=== PATIENT | female | born 1940 | race Caucasian/White ===

== ENCOUNTER → 2020-06-14 | Outpatient (CLI) | payer MEDICARE ==
[~2020-06-14] MED LIST: FISH OIL 1,0001 EAC2 PO; GLIMEPIRIDE2 MG PO; LEVOTHYROXINE88 MCG PO; MELATONIN3 MG PO; METOPROLOL TART50 MG PO; NASONEX17 GM; NIACIN500 M2 PO; NIFEDIPINE10 MG PO; POLYETHYLENE GL17 GM PO; PREVACID15 M1 PO; SIMVASTATIN40 MG PO
[2020-06-14 11:57] LABS: BASOPHILS # (AUTO) 0.1 (0.0-0.1); BASOPHILS % 0.7 % (0.0-1.0); EOSINOPHILS # (AUTO) 0.8 (0.0-0.4); EOSINOPHILS % 8.2 % (0.0-6.0); HEMOGLOBIN 14.2 g/dL (12.0-16.0); LYMPHOCYTES # (AUTO) 2.3 (1.0-3.2); LYMPHOCYTES % 23.5 % (18.0-39.1); MEAN CORPUSCULAR HEMOGLOBIN 29.6 pg (28-32); MEAN CORPUSCULAR HGB CONC 32.3 g/dL (31-35); MEAN CORPUSCULAR VOLUME 91.7 fL (81-99); MONOCYTES # (AUTO) 0.7 (0.2-0.8); MONOCYTES % 7.5 % (4.4-11.3); NEUTROPHILS # (AUTO) 5.8 (2.1-6.9); NEUTROPHILS % 59.9 % (38.7-80.0); PLATELET COUNT 245 x10e3/uL (140-360); RED CELL DISTRIBUTION WIDTH 13.5 % (11.7-14.4)
== END ==
LOC: DX 21:40 → EDSTATUS 06-19 14:00
PROVIDERS: ATTEND Internal Medicine Gastroenterology
DX: Z01.812 Encounter for preprocedural laboratory examination (principal); Z01.818 Encounter for other preprocedural examination; Z20.822 Contact with and (suspected) exposure to COVID-19; R11.2 Nausea with vomiting, unspecified; Z98.84 Bariatric surgery status
CPT/HCPCS: 36415; 85025; 93005; U0002

== ENCOUNTER → 2020-10-25 | Outpatient (CLI) | payer MEDICARE ==
[~2020-10-25] MED LIST changes: +DIATRIZOATE MEGL/DIATRIZOA SOD 30 ML BTL PO ONE; +IOPAMIDOL 370 MG/ML 200 ML INFUS..BTL INJ ONE; +SODIUM CHLORIDE 0.9% 500ML 500 ML ONE; +SODIUM CHLORIDE 0.9% 50ML 50 ML ONE
[2020-10-25 12:13] LABS: BASOPHILS # (AUTO) 0.1 (0.0-0.1); BASOPHILS % 0.9 % (0.0-1.0); EOSINOPHILS # (AUTO) 0.5 (0.0-0.4); EOSINOPHILS % 5.2 % (0.0-6.0); HEMATOCRIT 44.7 % (34.2-44.1); HEMOGLOBIN 14.5 g/dL (12.0-16.0); LYMPHOCYTES # (AUTO) 2.1 (1.0-3.2); LYMPHOCYTES % 21.9 % (18.0-39.1); MEAN CORPUSCULAR HEMOGLOBIN 29.9 pg (28-32); MEAN CORPUSCULAR HGB CONC 32.4 g/dL (31-35); MEAN CORPUSCULAR VOLUME 92.2 fL (81-99); MONOCYTES # (AUTO) 0.7 (0.2-0.8); MONOCYTES % 6.7 % (4.4-11.3); NEUTROPHILS # (AUTO) 6.3 (2.1-6.9); NEUTROPHILS % 64.9 % (38.7-80.0); PLATELET COUNT 267 x10e3/uL (140-360); RED BLOOD COUNT 4.85 x10e6/uL (3.6-5.1); RED CELL DISTRIBUTION WIDTH 14.6 % (11.7-14.4)
[2020-10-25 12:31] LABS: ALBUMIN 3.2 g/dL (3.5-5.0); ANION GAP 14.3 mmol/L (8-16); CALCIUM 8.6 mg/dL (8.4-10.2); CREATININE, SERUM 0.99 mg/dL (0.57-1.11); POTASSIUM 4.3 mmol/L (3.5-5.1)
== END ==
LOC: CT 11:37
PROVIDERS: ATTEND Surgery
DX: T85.518A Breakdown (mechanical) of other gastrointestinal prosthetic devices, implants and grafts, initial encounter (principal); Z01.812 Encounter for preprocedural laboratory examination; Z01.818 Encounter for other preprocedural examination
CPT/HCPCS: 36415; 71046; 74160; 80053; 85025; 93005; 96360; J7040; Q9967

== ENCOUNTER 2020-11-26 06:25 | Inpatient (IN) | payer MEDICARE ==
[~2020-11-26] VITALS: Ht 172.7 cm; Wt 90.7 kg
[2020-11-26] VITALS (12 sets, daily range): BP systolic 100–129; BP diastolic 50–60
[~2020-11-26 06:25] MED LIST changes: +ACETAMINOPHEN325 M1 PO; -DIATRIZOATE MEGL/DIATRIZOA SOD 30 ML BTL PO ONE; -IOPAMIDOL 370 MG/ML 200 ML INFUS..BTL INJ ONE; +LEVEMIR FL100 UNIT/1 SC; -SODIUM CHLORIDE 0.9% 500ML 500 ML ONE; -SODIUM CHLORIDE 0.9% 50ML 50 ML ONE
[2020-11-26] MEDS ORDERED: DEXTROSE 5% 250ML 250 ML IV ONE (07:07)
[2020-11-26] MEDS ORDERED: ACETAMINOPHEN 1000 MG/100 ML 100 ML IV ONE (07:54)
[2020-11-26] MEDS ORDERED: SUGAMMADEX SODIUM 200 MG/2 ML VIAL IV ONE (07:55)
[2020-11-26] MEDS ORDERED: ROCURONIUM BROMIDE 10 MG/ML 5ML VIAL IV ONE (10:17)
[2020-11-26] MEDS ORDERED: EPHEDRINE SULFATE INJ 50 MG/ML VIAL ONE (10:17)
[2020-11-26] MEDS ORDERED: LIDOCAINE HCL 2% LOCAL INJ 5 ML SDV VIAL INJ ONE (10:17)
[2020-11-26] MEDS ORDERED: PHENYLEPHRINE HCL 1% 10 MG/ML VIAL ONE (10:17)
[2020-11-26] MEDS ORDERED: CEFOXITIN SOD 1 GM VIAL ONE (10:17)
[2020-11-26] MEDS ORDERED: ETOMIDATE 2 MG/ML 10 ML INJ IV ONE (10:17)
[2020-11-26] MEDS ORDERED: SEVOFLURANE INHAL SOLN 250 ML PEN BTL ONE (10:17)
[2020-11-26] MEDS ORDERED: POVIDONE IODINE 0.05% 0.05 % ML PO ONE (10:17)
[2020-11-26] MEDS ORDERED: DEXAMETHASONE SOD PHOS INJ 4 MG/ML VIAL ONE (10:17)
[2020-11-26] MEDS ORDERED: ONDANSETRON HCL INJ 2MG/ML 2ML 2 MG/ML VIAL ONE (10:17)
[2020-11-26] MEDS ORDERED: PROPOFOL IV EMULSION 10 MG/ML 20 ML VIAL ONE (10:17)
[2020-11-26] MEDS ORDERED: LIDOCAINE HCL 2% JELLY 5 ML TUBE ONE (10:17)
[2020-11-26] MEDS ORDERED: FENTANYL CITRATE/PF 100MCG/2 ML INJ ONE (12:32)
[2020-11-26] MEDS ORDERED: DEXTROSE 50% SYRINGE 50 ML IV PRN (14:15)
[2020-11-26] MEDS: SODIUM CHLORIDE 0.9% 1000ML 1,000 ML IV SCH ×2 (14:29→22:55)
[2020-11-26] MEDS: SODIUM CHLORIDE 0.9% 250ML IRRIG IR SCH ×3 (14:29→20:24)
[2020-11-26] MEDS: HYDROMORPHONE 1MG/1ML INJ IV PRN ×2 (14:29→21:57)
[2020-11-26] MEDS ORDERED: ACETAMINOPHEN 1000 MG/100 ML IV PRN (16:00)
[2020-11-26] MEDS: CEFOXITIN 1GM/0.9% NS 50ML 50 ML IV SCH (17:20)
[2020-11-26] MEDS: INSULIN REGULAR, HUMAN 100 UNIT/1 ML SQ SCH ×2 (17:34→23:50)
[2020-11-27] VITALS (24 sets, daily range): BP systolic 114–157; BP diastolic 54–72
[2020-11-27] MEDS: CEFOXITIN 1GM/0.9% NS 50ML 50 ML IV SCH (00:01)
[2020-11-27] MEDS: SODIUM CHLORIDE 0.9% 250ML IRRIG IR SCH ×6 (00:01→21:00)
[2020-11-27 04:47] LABS: BASOPHILS # (AUTO) 0.1 (0.0-0.1); BASOPHILS % 0.2 % (0.0-1.0); HEMATOCRIT 34.3 % (34.2-44.1); HEMOGLOBIN 11.3 g/dL (12.0-16.0); LYMPHOCYTES # (AUTO) 1.2 (1.0-3.2); LYMPHOCYTES % 4.2 % (18.0-39.1); MEAN CORPUSCULAR HEMOGLOBIN 29.8 pg (28-32); MEAN CORPUSCULAR HGB CONC 32.9 g/dL (31-35); MEAN CORPUSCULAR VOLUME 90.5 fL (81-99); MONOCYTES # (AUTO) 3.3 (0.2-0.8); NEUTROPHILS % 83.7 % (38.7-80.0); PLATELET COUNT 245 x10e3/uL (140-360); RED BLOOD COUNT 3.79 x10e6/uL (3.6-5.1); RED CELL DISTRIBUTION WIDTH 14.1 % (11.7-14.4)
[2020-11-27 05:06] LABS: ANION GAP 14.9 mmol/L (8-16); CALCIUM 7.4 mg/dL (8.4-10.2); CREATININE, SERUM 2.06 mg/dL (0.57-1.11); POTASSIUM 4.9 mmol/L (3.5-5.1)
[2020-11-27] MEDS: INSULIN REGULAR, HUMAN 100 UNIT/1 ML SQ SCH ×3 (05:52→17:49)
[2020-11-27] MEDS ORDERED: SODIUM CHLORIDE 0.9% 500ML 500 ML IV ONE (06:30)
[2020-11-27] MEDS: SODIUM CHLORIDE 0.9% 1000ML 1,000 ML IV SCH ×2 (09:23→18:00)
[2020-11-27 10:04] LABS: BAND NEUTROPHILS % (MANUAL) 3 %; LYMPHOCYTES % (MANUAL) 2 % (19-48); MONOCYTES % (MANUAL) 16 % (3.4-9.0); NEUTROPHILS % (MANUAL) 79 % (40-74); PLATELET ESTIMATE ADEQUATE; PLATELET MORPHOLOGY COMMENT NORMAL; RBC MORPHOLOGY COMMENT NORMAL
[2020-11-27] MEDS: HYDROMORPHONE 1MG/1ML INJ IV PRN ×2 (10:56→17:15)
[2020-11-27] MEDS ORDERED: FUROSEMIDE INJ 10 MG/ML 2 ML VIAL IV ONE (11:30)
[2020-11-28] VITALS (33 sets, daily range): BP systolic 111–171; BP diastolic 48–106
[2020-11-28] MEDS: SODIUM CHLORIDE 0.9% 250ML IRRIG IR SCH ×6 (00:43→20:30)
[2020-11-28] MEDS: HYDROMORPHONE 1MG/1ML INJ IV PRN ×3 (00:51→16:35)
[2020-11-28] MEDS: SODIUM CHLORIDE 0.9% 1000ML 1,000 ML IV SCH ×2 (02:59→14:22)
[2020-11-28 05:17] LABS: BASOPHILS # (AUTO) 0.1 (0.0-0.1); BASOPHILS % 0.3 % (0.0-1.0); HEMATOCRIT 31.6 % (34.2-44.1); HEMOGLOBIN 10.1 g/dL (12.0-16.0); LYMPHOCYTES # (AUTO) 1.7 (1.0-3.2); LYMPHOCYTES % 5.3 % (18.0-39.1); MEAN CORPUSCULAR HEMOGLOBIN 29.8 pg (28-32); MEAN CORPUSCULAR VOLUME 93.2 fL (81-99); MONOCYTES # (AUTO) 3.9 (0.2-0.8); MONOCYTES % 12.3 % (4.4-11.3); NEUTROPHILS # (AUTO) 25.3 (2.1-6.9); NEUTROPHILS % 80.7 % (38.7-80.0); PLATELET COUNT 288 x10e3/uL (140-360); RED BLOOD COUNT 3.39 x10e6/uL (3.6-5.1)
[2020-11-28 05:31] LABS: ANION GAP 11.5 mmol/L (8-16); CALCIUM 7.5 mg/dL (8.4-10.2); CREATININE, SERUM 1.7 mg/dL (0.57-1.11); POTASSIUM 4.5 mmol/L (3.5-5.1)
[2020-11-28] MEDS: INSULIN REGULAR, HUMAN 100 UNIT/1 ML SQ SCH ×4 (05:48→17:10)
[2020-11-28 07:45] LABS: BAND NEUTROPHILS % (MANUAL) 1 %; LYMPHOCYTES % (MANUAL) 2 % (19-48); MONOCYTES % (MANUAL) 8 % (3.4-9.0); NEUTROPHILS % (MANUAL) 88 % (40-74)
[2020-11-28 07:46] LABS: PLATELET ESTIMATE ADEQUATE; PLATELET MORPHOLOGY COMMENT NORMAL; RBC MORPHOLOGY COMMENT NORMAL
[2020-11-28] MEDS: PIPERACILLIN/TAZOBACTAM 2.25 GM in SODIUM CHLORIDE 0.9% 50ML 50 ML IV SCH ×2 (11:19→17:10)
[2020-11-28] MEDS: METOPROLOL TARTRATE INJ 1 MG/ML VIAL IV SCH ×2 (13:05→20:10)
[2020-11-28] MEDS ORDERED: AMIODARONE HCL 100 ML IV ONE (20:13)
[2020-11-28] MEDS ORDERED: AMIODARONE 900MG 500 ML IV ONE (20:13)
[2020-11-28] MEDS ORDERED: AMIODARONE HCL INJ 150MG/3ML ONE (20:13)
[2020-11-28] MEDS ORDERED: DIGOXIN INJ 0.25 MG/ML 2 ML AMP IV ONE (20:15)
[2020-11-28] MEDS ORDERED: AMIODARONE HCL 150 MG/100 ML BAG IV ONE (20:15)
[2020-11-28] MEDS: AMIODARONE 900MG 500 ML IV PRN (20:20)
[2020-11-28] MEDS ORDERED: DIGOXIN INJ 0.25 MG/ML 2 ML AMP ONE (20:23)
[2020-11-28] MEDS: BISACODYL 10 MG SUPP PR SCH (21:00)
[2020-11-29] VITALS (28 sets, daily range): BP systolic 135–175; BP diastolic 46–130
[2020-11-29] MEDS: SODIUM CHLORIDE 0.9% 250ML IRRIG IR SCH ×4 (00:35→11:23)
[2020-11-29] MEDS: PIPERACILLIN/TAZOBACTAM 2.25 GM in SODIUM CHLORIDE 0.9% 50ML 50 ML IV SCH ×4 (00:35→17:10)
[2020-11-29] MEDS: SODIUM CHLORIDE 0.9% 1000ML 1,000 ML IV SCH ×3 (00:35→21:17)
[2020-11-29] MEDS: HYDROMORPHONE 1MG/1ML INJ IV PRN ×3 (03:09→21:28)
[2020-11-29] MEDS: METOPROLOL TARTRATE INJ 1 MG/ML VIAL IV SCH ×3 (05:24→17:10)
[2020-11-29] MEDS: INSULIN REGULAR, HUMAN 100 UNIT/1 ML SQ SCH ×4 (06:00→17:54)
[2020-11-29 07:37] LABS: BASOPHILS # (AUTO) 0.1 (0.0-0.1); BASOPHILS % 0.4 % (0.0-1.0); EOSINOPHILS # (AUTO) 0.1 (0.0-0.4); EOSINOPHILS % 0.2 % (0.0-6.0); HEMATOCRIT 32.3 % (34.2-44.1); HEMOGLOBIN 10.1 g/dL (12.0-16.0); LYMPHOCYTES # (AUTO) 1.8 (1.0-3.2); LYMPHOCYTES % 5.5 % (18.0-39.1); MEAN CORPUSCULAR HEMOGLOBIN 29.9 pg (28-32); MEAN CORPUSCULAR HGB CONC 31.3 g/dL (31-35); MEAN CORPUSCULAR VOLUME 95.6 fL (81-99); MONOCYTES # (AUTO) 3.1 (0.2-0.8); MONOCYTES % 9.8 % (4.4-11.3); NEUTROPHILS # (AUTO) 26.5 (2.1-6.9); NEUTROPHILS % 82.6 % (38.7-80.0); PLATELET COUNT 296 x10e3/uL (140-360); RED BLOOD COUNT 3.38 x10e6/uL (3.6-5.1); RED CELL DISTRIBUTION WIDTH 14.8 % (11.7-14.4)
[2020-11-29] MEDS: BISACODYL 10 MG SUPP PR SCH (08:04)
[2020-11-29 08:22] LABS: ANION GAP 12.4 mmol/L (8-16); CALCIUM 7.6 mg/dL (8.4-10.2); CREATININE, SERUM 1.01 mg/dL (0.57-1.11); POTASSIUM 4.4 mmol/L (3.5-5.1)
[2020-11-29 09:39] LABS: LYMPHOCYTES % (MANUAL) 5 % (19-48); MONOCYTES % (MANUAL) 5 % (3.4-9.0); NEUTROPHILS % (MANUAL) 90 % (40-74); PLATELET ESTIMATE ADEQUATE; PLATELET MORPHOLOGY COMMENT NORMAL; RBC MORPHOLOGY COMMENT NORMAL
[2020-11-29] MEDS: ONDANSETRON HCL INJ 2MG/ML 2ML 2 MG/ML VIAL IV PRN (14:26)
[2020-11-29] MEDS: AMIODARONE 900MG 500 ML IV PRN (17:10)
[2020-11-30] VITALS (18 sets, daily range): BP systolic 104–196; BP diastolic 43–69
[2020-11-30] MEDS: METOPROLOL TARTRATE INJ 1 MG/ML VIAL IV SCH ×2 (00:07→05:53)
[2020-11-30] MEDS: PIPERACILLIN/TAZOBACTAM 2.25 GM in SODIUM CHLORIDE 0.9% 50ML 50 ML IV SCH ×5 (00:07→23:44)
[2020-11-30] MEDS ORDERED: HYDRALAZINE HCL 20 MG/ML VIAL IV STA (02:01)
[2020-11-30] MEDS: HYDROMORPHONE 1MG/1ML INJ IV PRN ×3 (02:09→14:01)
[2020-11-30] MEDS ORDERED: CLONIDINE HCL 0.1 MG/24 HR 1 EA PATCH TOP SCH (02:15)
[2020-11-30] MEDS: INSULIN REGULAR, HUMAN 100 UNIT/1 ML SQ SCH ×5 (05:38→20:58)
[2020-11-30 05:48] LABS: BASOPHILS # (AUTO) 0.1 (0.0-0.1); BASOPHILS % 0.3 % (0.0-1.0); EOSINOPHILS # (AUTO) 0.1 (0.0-0.4); EOSINOPHILS % 0.5 % (0.0-6.0); HEMATOCRIT 30.2 % (34.2-44.1); HEMOGLOBIN 9.9 g/dL (12.0-16.0); LYMPHOCYTES # (AUTO) 1.1 (1.0-3.2); MEAN CORPUSCULAR HEMOGLOBIN 30.3 pg (28-32); MEAN CORPUSCULAR HGB CONC 32.8 g/dL (31-35); MEAN CORPUSCULAR VOLUME 92.4 fL (81-99); MONOCYTES # (AUTO) 2.3 (0.2-0.8); MONOCYTES % 9.8 % (4.4-11.3); NEUTROPHILS % 82.8 % (38.7-80.0); PLATELET COUNT 360 x10e3/uL (140-360); RED BLOOD COUNT 3.27 x10e6/uL (3.6-5.1); RED CELL DISTRIBUTION WIDTH 14.4 % (11.7-14.4)
[2020-11-30] MEDS: SODIUM CHLORIDE 0.9% 1000ML 1,000 ML IV SCH ×4 (05:53→23:50)
[2020-11-30 06:13] LABS: ALBUMIN 1.7 g/dL (3.5-5.0); ALBUMIN/GLOBULIN RATIO 0.5 (0.8-2.0); ANION GAP 12.8 mmol/L (8-16); CALCIUM 7.7 mg/dL (8.4-10.2); CREATININE, SERUM 0.82 mg/dL (0.57-1.11); POTASSIUM 3.8 mmol/L (3.5-5.1)
[2020-11-30 07:25] LABS: LYMPHOCYTES % (MANUAL) 6 % (19-48); MONOCYTES % (MANUAL) 4 % (3.4-9.0); NEUTROPHILS % (MANUAL) 90 % (40-74); PLATELET ESTIMATE ADEQUATE; PLATELET MORPHOLOGY COMMENT NORMAL; RBC MORPHOLOGY COMMENT NORMAL
[2020-11-30] MEDS ORDERED: HYDRALAZINE HCL 20 MG/ML VIAL IV PRN (09:45)
[2020-11-30] MEDS ORDERED: METOPROLOL TARTRATE INJ 1 MG/ML VIAL IV PRN (10:00)
[2020-11-30] MEDS: OMEGA 3 POLYUNSAT FATTY ACIDS 1000 MG SOFTGEL PO SCH (11:16)
[2020-11-30] MEDS: ONDANSETRON HCL INJ 2MG/ML 2ML 2 MG/ML VIAL IV PRN (14:01)
[2020-11-30] MEDS ORDERED: METOPROLOL TARTRATE 50 MG TAB PO SCH (17:00)
[2020-11-30] MEDS ORDERED: AMIODARONE HCL 200 MG TAB PO SCH (17:00)
[2020-11-30] MEDS: AMIODARONE HCL 200 MG TAB PO SCH (21:09)
[2020-11-30] MEDS: METOPROLOL TARTRATE 50 MG TAB PO SCH (21:09)
[2020-11-30] MEDS: SIMVASTATIN 40 MG TAB PO SCH (21:09)
[2020-12-01] VITALS (8 sets, daily range): BP systolic 123–166; BP diastolic 58–63
[2020-12-01] MEDS: PIPERACILLIN/TAZOBACTAM 2.25 GM in SODIUM CHLORIDE 0.9% 50ML 50 ML IV SCH ×4 (05:14→23:30)
[2020-12-01] MEDS: LEVOTHYROXINE SODIUM 88 MCG TAB PO SCH (06:06)
[2020-12-01] MEDS: INSULIN REGULAR, HUMAN 100 UNIT/1 ML SQ SCH ×4 (07:30→21:00)
[2020-12-01 07:45] LABS: BASOPHILS # (AUTO) 0.1 (0.0-0.1); BASOPHILS % 0.5 % (0.0-1.0); EOSINOPHILS # (AUTO) 0.3 (0.0-0.4); EOSINOPHILS % 2.1 % (0.0-6.0); HEMATOCRIT 26.8 % (34.2-44.1); HEMOGLOBIN 8.6 g/dL (12.0-16.0); LYMPHOCYTES # (AUTO) 1.3 (1.0-3.2); LYMPHOCYTES % 8.8 % (18.0-39.1); MEAN CORPUSCULAR HEMOGLOBIN 29.8 pg (28-32); MEAN CORPUSCULAR HGB CONC 32.1 g/dL (31-35); MEAN CORPUSCULAR VOLUME 92.7 fL (81-99); MONOCYTES # (AUTO) 2.4 (0.2-0.8); MONOCYTES % 16.6 % (4.4-11.3); NEUTROPHILS # (AUTO) 10.2 (2.1-6.9); NEUTROPHILS % 70.4 % (38.7-80.0); PLATELET COUNT 366 x10e3/uL (140-360); RED BLOOD COUNT 2.89 x10e6/uL (3.6-5.1); RED CELL DISTRIBUTION WIDTH 14.6 % (11.7-14.4)
[2020-12-01] MEDS: AMIODARONE HCL 200 MG TAB PO SCH ×2 (07:58→22:00)
[2020-12-01] MEDS: PANTOPRAZOLE SOD 40 MG TABEC PO SCH (07:58)
[2020-12-01] MEDS: METOPROLOL TARTRATE 50 MG TAB PO SCH ×2 (07:59→22:00)
[2020-12-01] MEDS: OMEGA 3 POLYUNSAT FATTY ACIDS 1000 MG SOFTGEL PO SCH (07:59)
[2020-12-01] MEDS: NIFEDIPINE CR 30 MG TAB PO SCH (07:59)
[2020-12-01 08:08] LABS: ALBUMIN 1.5 g/dL (3.5-5.0); ALBUMIN/GLOBULIN RATIO 0.5 (0.8-2.0); ANION GAP 10.7 mmol/L (8-16); CALCIUM 7.7 mg/dL (8.4-10.2); CREATININE, SERUM 0.95 mg/dL (0.57-1.11); POTASSIUM 3.7 mmol/L (3.5-5.1)
[2020-12-01] MEDS: ACETAMINOPHEN 325 MG TAB PO PRN (10:47)
[2020-12-01] MEDS: SIMVASTATIN 40 MG TAB PO SCH (22:05)
[2020-12-02] VITALS (8 sets, daily range): BP systolic 125–143; BP diastolic 52–63
[2020-12-02 05:02] LABS: BASOPHILS # (AUTO) 0.1 (0.0-0.1); BASOPHILS % 0.6 % (0.0-1.0); EOSINOPHILS # (AUTO) 0.4 (0.0-0.4); EOSINOPHILS % 3.1 % (0.0-6.0); HEMATOCRIT 26.2 % (34.2-44.1); HEMOGLOBIN 8.5 g/dL (12.0-16.0); LYMPHOCYTES # (AUTO) 1.5 (1.0-3.2); LYMPHOCYTES % 10.6 % (18.0-39.1); MEAN CORPUSCULAR HEMOGLOBIN 29.5 pg (28-32); MEAN CORPUSCULAR HGB CONC 32.4 g/dL (31-35); MONOCYTES # (AUTO) 2.6 (0.2-0.8); MONOCYTES % 18.2 % (4.4-11.3); NEUTROPHILS # (AUTO) 9.2 (2.1-6.9); NEUTROPHILS % 65.9 % (38.7-80.0); PLATELET COUNT 413 x10e3/uL (140-360); RED BLOOD COUNT 2.88 x10e6/uL (3.6-5.1); RED CELL DISTRIBUTION WIDTH 14.4 % (11.7-14.4)
[2020-12-02 05:19] LABS: ALBUMIN 1.5 g/dL (3.5-5.0); ALBUMIN/GLOBULIN RATIO 0.5 (0.8-2.0); ANION GAP 10.5 mmol/L (8-16); CREATININE, SERUM 0.98 mg/dL (0.57-1.11); POTASSIUM 3.5 mmol/L (3.5-5.1)
[2020-12-02] MEDS: PIPERACILLIN/TAZOBACTAM 2.25 GM in SODIUM CHLORIDE 0.9% 50ML 50 ML IV SCH ×4 (06:00→23:30)
[2020-12-02] MEDS: LEVOTHYROXINE SODIUM 88 MCG TAB PO SCH (06:36)
[2020-12-02] MEDS: ACETAMINOPHEN 325 MG TAB PO PRN ×2 (06:39→09:07)
[2020-12-02] MEDS: INSULIN REGULAR, HUMAN 100 UNIT/1 ML SQ SCH ×4 (07:30→20:23)
[2020-12-02] MEDS: PANTOPRAZOLE SOD 40 MG TABEC PO SCH (08:59)
[2020-12-02] MEDS: AMIODARONE HCL 200 MG TAB PO SCH ×2 (09:00→20:38)
[2020-12-02] MEDS: OMEGA 3 POLYUNSAT FATTY ACIDS 1000 MG SOFTGEL PO SCH (09:01)
[2020-12-02] MEDS: NIFEDIPINE CR 30 MG TAB PO SCH (09:01)
[2020-12-02] MEDS: METOPROLOL TARTRATE 50 MG TAB PO SCH ×2 (09:01→20:38)
[2020-12-02] MEDS ORDERED: POTASSIUM CHLORIDE 10MEQ EA PO ONE (09:15)
[2020-12-02] MEDS: SIMVASTATIN 40 MG TAB PO SCH (20:38)
[2020-12-03] VITALS (8 sets, daily range): BP systolic 94–160; BP diastolic 45–73
[2020-12-03 05:21] LABS: BASOPHILS # (AUTO) 0.1 (0.0-0.1); BASOPHILS % 0.7 % (0.0-1.0); EOSINOPHILS # (AUTO) 0.7 (0.0-0.4); EOSINOPHILS % 4.7 % (0.0-6.0); HEMATOCRIT 27.6 % (34.2-44.1); LYMPHOCYTES # (AUTO) 1.5 (1.0-3.2); LYMPHOCYTES % 9.6 % (18.0-39.1); MEAN CORPUSCULAR HEMOGLOBIN 29.7 pg (28-32); MEAN CORPUSCULAR HGB CONC 32.6 g/dL (31-35); MEAN CORPUSCULAR VOLUME 91.1 fL (81-99); MONOCYTES # (AUTO) 2.5 (0.2-0.8); MONOCYTES % 16.1 % (4.4-11.3); NEUTROPHILS # (AUTO) 10.5 (2.1-6.9); NEUTROPHILS % 67.5 % (38.7-80.0); PLATELET COUNT 499 x10e3/uL (140-360); RED BLOOD COUNT 3.03 x10e6/uL (3.6-5.1); RED CELL DISTRIBUTION WIDTH 14.3 % (11.7-14.4)
[2020-12-03] MEDS: LEVOTHYROXINE SODIUM 88 MCG TAB PO SCH (05:29)
[2020-12-03] MEDS: PIPERACILLIN/TAZOBACTAM 2.25 GM in SODIUM CHLORIDE 0.9% 50ML 50 ML IV SCH ×3 (05:29→17:25)
[2020-12-03 05:39] LABS: ALBUMIN 1.7 g/dL (3.5-5.0); ALBUMIN/GLOBULIN RATIO 0.5 (0.8-2.0); ANION GAP 11.7 mmol/L (8-16); CALCIUM 8.1 mg/dL (8.4-10.2); CREATININE, SERUM 0.82 mg/dL (0.57-1.11); POTASSIUM 3.7 mmol/L (3.5-5.1)
[2020-12-03] MEDS: INSULIN REGULAR, HUMAN 100 UNIT/1 ML SQ SCH ×4 (07:30→20:17)
[2020-12-03] MEDS ORDERED: ONDANSETRON HCL 4 MG ORAL DISINTEGRATING TAB PO PRN (08:00)
[2020-12-03] MEDS: AMIODARONE HCL 200 MG TAB PO SCH ×2 (08:20→20:55)
[2020-12-03] MEDS: PANTOPRAZOLE SOD 40 MG TABEC PO SCH (08:20)
[2020-12-03] MEDS: OMEGA 3 POLYUNSAT FATTY ACIDS 1000 MG SOFTGEL PO SCH (08:21)
[2020-12-03] MEDS: METOPROLOL TARTRATE 50 MG TAB PO SCH ×2 (08:21→20:47)
[2020-12-03] MEDS: NIFEDIPINE CR 30 MG TAB PO SCH (08:21)
[2020-12-03] MEDS ORDERED: LEVOFLOXACIN250 MG PO (12:58)
[2020-12-03] MEDS ORDERED: FLAGYL500 MG PO (12:58)
[2020-12-03] MEDS ORDERED: METOPROLOL SUCC50 MG PO (12:59)
[2020-12-03] MEDS ORDERED: AMIODARONE HCL200 MG PO (12:59)
[2020-12-03] MEDS: SIMVASTATIN 40 MG TAB PO SCH (20:50)
[2020-12-03] MEDS: ACETAMINOPHEN 325 MG TAB PO PRN (20:50)
[2020-12-04] VITALS: BP 117/54
[2020-12-04] MEDS: PIPERACILLIN/TAZOBACTAM 2.25 GM in SODIUM CHLORIDE 0.9% 50ML 50 ML IV SCH ×2 (00:09→06:00)
[2020-12-04 04:00] VITALS: BP 122/54
[2020-12-04 05:18] LABS: BASOPHILS # (AUTO) 0.1 (0.0-0.1); BASOPHILS % 0.5 % (0.0-1.0); EOSINOPHILS # (AUTO) 0.8 (0.0-0.4); EOSINOPHILS % 5.7 % (0.0-6.0); HEMATOCRIT 27.6 % (34.2-44.1); HEMOGLOBIN 9.1 g/dL (12.0-16.0); LYMPHOCYTES # (AUTO) 1.9 (1.0-3.2); LYMPHOCYTES % 13.1 % (18.0-39.1); MEAN CORPUSCULAR HEMOGLOBIN 30.1 pg (28-32); MEAN CORPUSCULAR VOLUME 91.4 fL (81-99); MONOCYTES % 13.6 % (4.4-11.3); NEUTROPHILS # (AUTO) 9.7 (2.1-6.9); NEUTROPHILS % 65.9 % (38.7-80.0); PLATELET COUNT 571 x10e3/uL (140-360); RED BLOOD COUNT 3.02 x10e6/uL (3.6-5.1); RED CELL DISTRIBUTION WIDTH 14.4 % (11.7-14.4)
[2020-12-04] MEDS: LEVOTHYROXINE SODIUM 88 MCG TAB PO SCH (06:00)
[2020-12-04 06:04] LABS: ANION GAP 13.5 mmol/L (8-16); CALCIUM 8.1 mg/dL (8.4-10.2); CREATININE, SERUM 0.84 mg/dL (0.57-1.11); POTASSIUM 3.5 mmol/L (3.5-5.1)
[2020-12-04] MEDS: INSULIN REGULAR, HUMAN 100 UNIT/1 ML SQ SCH ×2 (07:30→11:30)
[2020-12-04 08:15] VITALS: BP 134/51
[2020-12-04] MEDS: AMIODARONE HCL 200 MG TAB PO SCH (08:17)
[2020-12-04] MEDS: PANTOPRAZOLE SOD 40 MG TABEC PO SCH (08:17)
[2020-12-04] MEDS: NIFEDIPINE CR 30 MG TAB PO SCH (08:18)
[2020-12-04] MEDS: METOPROLOL TARTRATE 50 MG TAB PO SCH (08:18)
[2020-12-04] MEDS: OMEGA 3 POLYUNSAT FATTY ACIDS 1000 MG SOFTGEL PO SCH (08:18)
[2020-12-04 09:06] VITALS: BP 134/51
[2020-12-04 12:07] VITALS: BP 147/56
== END 2020-12-04 12:48 | disposition home health service (06) | DRG 907 ==
LOC: OR 06:25 → PACU V 12:23 → ICU 13:43 → MED/SURG 11-30 13:04
PROVIDERS: ADMIT Surgery; ATTEND Surgery
PROC: 008Q0ZZ Division of Vagus Nerve, Open Approach (ICD-10-PCS; 2020-11-26)
PROC: 0DC60ZZ Extirpation of Matter from Stomach, Open Approach (ICD-10-PCS; 2020-11-26)
PROC: 07TP0ZZ Resection of Spleen, Open Approach (ICD-10-PCS; 2020-11-26)
PROC: 0DQ60ZZ Repair Stomach, Open Approach (ICD-10-PCS; principal; 2020-11-26 08:27)
DX: T85.79XA Infection and inflammatory reaction due to other internal prosthetic devices, implants and grafts, initial encounter (principal); A41.9 Sepsis, unspecified organism; E43 Unspecified severe protein-calorie malnutrition; K65.8 Other peritonitis; K95.09 Other complications of gastric band procedure; K56.691 Other complete intestinal obstruction; I10 Essential (primary) hypertension; E11.9 Type 2 diabetes mellitus without complications; I48.0 Paroxysmal atrial fibrillation; F03.90 Unspecified dementia, unspecified severity, without behavioral disturbance, psychotic disturbance, mood disturbance, and anxiety; I11.9 Hypertensive heart disease without heart failure; D50.0 Iron deficiency anemia secondary to blood loss (chronic); K66.0 Peritoneal adhesions (postprocedural) (postinfection); Y83.2 Surgical operation with anastomosis, bypass or graft as the cause of abnormal reaction of the patient, or of later complication, without mention of misadventure at the time of the procedure; T18.2XXA Foreign body in stomach, initial encounter; Z68.30 Body mass index [BMI] 30.0-30.9, adult; I25.10 Atherosclerotic heart disease of native coronary artery without angina pectoris
CPT/HCPCS: 36415; 36569; 71045; 80048; 80053; 82948; 85025; 88300; 88304; 88305; 93005; 97139; J0360; J0694; J1100; J1160; J1170; J1817; J1940; J2001; J2370; J2405; J2543; J3010; J7030; J7070; U0002

== ENCOUNTER 2020-12-08 03:04 | Inpatient (IN) | payer MEDICARE ==
[2020-12-08] VITALS (8 sets, daily range): BP systolic 124–147; BP diastolic 47–66
[~2020-12-08] VITALS: Ht 172.7 cm; Wt 90.7 kg
[~2020-12-08 03:04] MED LIST changes: +AMIODARONE HCL200 MG PO; +FLAGYL500 MG PO; +LEVOFLOXACIN250 MG PO; +METOPROLOL SUCC50 MG PO
[2020-12-08] MEDS ORDERED: DEXTROSE 50% SYRINGE 50 ML IV STA (03:12)
[2020-12-08] MEDS ORDERED: DEXTROSE 5%/0.9% SOD CHL 1,000 ML IV ONE (03:15)
[2020-12-08] MEDS ORDERED: DEXTROSE 50% SYRINGE 50 ML IV ONE (03:17)
[2020-12-08] MEDS ORDERED: DEXTROSE 5% 1,000 ML IV ONE (03:17)
[2020-12-08 03:18] LABS: BASOPHILS # (AUTO) 0.1 (0.0-0.1); BASOPHILS % 0.4 % (0.0-1.0); EOSINOPHILS # (AUTO) 0.2 (0.0-0.4); HEMATOCRIT 31.5 % (34.2-44.1); HEMOGLOBIN 10.2 g/dL (12.0-16.0); LYMPHOCYTES # (AUTO) 1.2 (1.0-3.2); MEAN CORPUSCULAR HEMOGLOBIN 29.4 pg (28-32); MEAN CORPUSCULAR HGB CONC 32.4 g/dL (31-35); MEAN CORPUSCULAR VOLUME 90.8 fL (81-99); MONOCYTES % 9.8 % (4.4-11.3); NEUTROPHILS # (AUTO) 16.3 (2.1-6.9); PLATELET COUNT 763 x10e3/uL (140-360); RED BLOOD COUNT 3.47 x10e6/uL (3.6-5.1); RED CELL DISTRIBUTION WIDTH 14.6 % (11.7-14.4)
[2020-12-08 03:19] LABS: CLARITY,URINE CLEAR (CLEAR); COLOR,URINE YELLOW (YELLOW); KETONES,URINE NEGATIVE (NEGATIVE); LEUKOCYTE ESTERASE ,URINE NEGATIVE (NEGATIVE); NITRITE,URINE NEGATIVE (NEGATIVE); PROTEIN,URINE DIPSTICK NEGATIVE (NEGATIVE); URINE UROBILINOGEN 0.2 mg/dL (0.2 - 1)
[2020-12-08 03:28] LABS: RBC,URINE 0-5 /HPF (0-5); WBC,URINE (MAN) 0-5 /HPF (0-5)
[2020-12-08 03:29] LABS: BACTERIA,URINE FEW /HPF; EPITHELIAL CELLS,URINE RARE /LPF
[2020-12-08 03:38] LABS: ALANINE AMINOTRANSFERASE 8 IU/L (0-55); ALBUMIN 2.1 g/dL (3.5-5.0); ALBUMIN/GLOBULIN RATIO 0.6 (0.8-2.0); ALKALINE PHOSPHATASE 62 IU/L (40-150); ANION GAP 17.3 mmol/L (8-16); BLOOD UREA NITROGEN 8 mg/dL (7-26); BUN/CREATININE RATIO 8 (6-25); CARBON DIOXIDE 22 mmol/L (22-29); CHLORIDE 105 mmol/L (98-107); CREATINE KINASE 15 IU/L (29-168); CREATININE, SERUM 0.99 mg/dL (0.57-1.11); EST GLOMERULAR FILTRATION RATE 54 ML/MIN (60-); POTASSIUM 3.3 mmol/L (3.5-5.1); SODIUM 141 mmol/L (136-145)
[2020-12-08 03:40] LABS: GLUCOSE 40 mg/dL (74-118)
[2020-12-08] MEDS ORDERED: POTASSIUM CHLORIDE 20 MEQ TAB CR PO STA (03:48)
[2020-12-08] MEDS ORDERED: KCL 20 MEQ PACKET/ ORAL SOLN PO ONE (04:00)
[2020-12-08] MEDS ORDERED: KCL 20 MEQ PACKET/ ORAL SOLN ONE (04:09)
[2020-12-08] MEDS: DEXTROSE 10% 1,000 ML IV SCH (15:56)
[2020-12-08] MEDS: SIMVASTATIN 40 MG TAB PO SCH (20:44)
[2020-12-09] VITALS (7 sets, daily range): BP systolic 131–169; BP diastolic 51–64
[2020-12-09] MEDS: DEXTROSE 10% 1,000 ML IV SCH ×2 (03:00→19:21)
[2020-12-09] MEDS: LEVOTHYROXINE SODIUM 88 MCG TAB PO SCH (05:02)
[2020-12-09] MEDS: ACETAMINOPHEN 325 MG TAB PO PRN (05:03)
[2020-12-09 06:37] LABS: BASOPHILS # (AUTO) 0.1 (0.0-0.1); BASOPHILS % 0.6 % (0.0-1.0); EOSINOPHILS # (AUTO) 0.6 (0.0-0.4); EOSINOPHILS % 3.3 % (0.0-6.0); HEMATOCRIT 31.8 % (34.2-44.1); HEMOGLOBIN 10.1 g/dL (12.0-16.0); LYMPHOCYTES % 10.3 % (18.0-39.1); MEAN CORPUSCULAR HEMOGLOBIN 29.7 pg (28-32); MEAN CORPUSCULAR HGB CONC 31.8 g/dL (31-35); MEAN CORPUSCULAR VOLUME 93.5 fL (81-99); MONOCYTES # (AUTO) 2.4 (0.2-0.8); MONOCYTES % 12.5 % (4.4-11.3); NEUTROPHILS # (AUTO) 13.7 (2.1-6.9); NEUTROPHILS % 72.5 % (38.7-80.0); PLATELET COUNT 673 x10e3/uL (140-360); RED CELL DISTRIBUTION WIDTH 15.3 % (11.7-14.4)
[2020-12-09 07:04] LABS: ALBUMIN 1.8 g/dL (3.5-5.0); ALBUMIN/GLOBULIN RATIO 0.6 (0.8-2.0); ANION GAP 10.6 mmol/L (8-16); CALCIUM 7.9 mg/dL (8.4-10.2); CREATININE, SERUM 0.91 mg/dL (0.57-1.11); POTASSIUM 3.6 mmol/L (3.5-5.1)
[2020-12-09 07:54] LABS: EOSINOPHILS % (MANUAL) 3 % (0-7); LYMPHOCYTES % (MANUAL) 11 % (19-48); MONOCYTES % (MANUAL) 9 % (3.4-9.0); NEUTROPHILS % (MANUAL) 77 % (40-74)
[2020-12-09] MEDS: AMIODARONE HCL 200 MG TAB PO SCH (08:39)
[2020-12-09] MEDS: NIFEDIPINE CR 30 MG TAB PO SCH (08:39)
[2020-12-09] MEDS: METOPROLOL SUCCINATE 50 MG TAB XL PO SCH (08:39)
[2020-12-09] MEDS: OMEGA 3 POLYUNSAT FATTY ACIDS 1000 MG SOFTGEL PO SCH (08:39)
[2020-12-09] MEDS ORDERED: LEVOTHYROXINE SODIUM 88 MCG TAB PO SCH (09:00)
[2020-12-09] MEDS ORDERED: NIFEDIPINE 10 MG CAP PO SCH (09:00)
[2020-12-09] MEDS: INSULIN LISPRO 100 UNIT/1 ML 3ML VIAL SQ SCH ×2 (16:30→21:23)
[2020-12-09 16:57] LABS: FREE T4 (FREE THYROXINE) 1.17 ng/dL (0.8-1.8); THYROID STIMULATING HORMONE 7.332 uIU/mL (0.350-4.940)
[2020-12-09] MEDS: SIMVASTATIN 40 MG TAB PO SCH (20:38)
[2020-12-10] VITALS (9 sets, daily range): BP systolic 121–148; BP diastolic 51–72
[2020-12-10] MEDS: ACETAMINOPHEN 325 MG TAB PO PRN ×3 (03:00→16:35)
[2020-12-10 05:40] LABS: BASOPHILS # (AUTO) 0.1 (0.0-0.1); BASOPHILS % 0.9 % (0.0-1.0); EOSINOPHILS # (AUTO) 0.5 (0.0-0.4); EOSINOPHILS % 3.6 % (0.0-6.0); HEMATOCRIT 33.4 % (34.2-44.1); HEMOGLOBIN 10.3 g/dL (12.0-16.0); LYMPHOCYTES % 12.8 % (18.0-39.1); MEAN CORPUSCULAR HEMOGLOBIN 29.7 pg (28-32); MEAN CORPUSCULAR HGB CONC 30.8 g/dL (31-35); MEAN CORPUSCULAR VOLUME 96.3 fL (81-99); MONOCYTES % 13.3 % (4.4-11.3); NEUTROPHILS # (AUTO) 10.4 (2.1-6.9); NEUTROPHILS % 68.6 % (38.7-80.0); PLATELET COUNT 532 x10e3/uL (140-360); RED BLOOD COUNT 3.47 x10e6/uL (3.6-5.1); RED CELL DISTRIBUTION WIDTH 15.5 % (11.7-14.4)
[2020-12-10] MEDS: LEVOTHYROXINE SODIUM 88 MCG TAB PO SCH (06:01)
[2020-12-10 06:09] LABS: ANION GAP 12.8 mmol/L (8-16); POTASSIUM 4.8 mmol/L (3.5-5.1)
[2020-12-10 08:37] LABS: EOSINOPHILS % (MANUAL) 1 % (0-7); LYMPHOCYTES % (MANUAL) 17 % (19-48); MONOCYTES % (MANUAL) 8 % (3.4-9.0); NEUTROPHILS % (MANUAL) 74 % (40-74); PLATELET ESTIMATE MODERATELY INCREASED; PLATELET MORPHOLOGY COMMENT RARE EDTA CLUMPING; RBC MORPHOLOGY COMMENT NORMAL
[2020-12-10] MEDS: INSULIN LISPRO 100 UNIT/1 ML 3ML VIAL SQ SCH ×4 (09:39→21:00)
[2020-12-10] MEDS: NIFEDIPINE CR 30 MG TAB PO SCH (09:40)
[2020-12-10] MEDS: OMEGA 3 POLYUNSAT FATTY ACIDS 1000 MG SOFTGEL PO SCH (09:40)
[2020-12-10] MEDS: AMIODARONE HCL 200 MG TAB PO SCH (09:40)
[2020-12-10] MEDS: METOPROLOL SUCCINATE 50 MG TAB XL PO SCH (09:41)
[2020-12-10] MEDS: DEXTROSE 10% 1,000 ML IV SCH (12:57)
[2020-12-10] MEDS: SIMVASTATIN 40 MG TAB PO SCH (20:31)
[2020-12-10] MEDS ORDERED: INSULIN GLARGINE 100 UNITS/ML VIAL SQ SCH (21:00)
[2020-12-11] VITALS: BP 139/66
[2020-12-11 04:00] VITALS: BP 133/57
[2020-12-11] MEDS: LEVOTHYROXINE SODIUM 88 MCG TAB PO SCH (05:09)
[2020-12-11 07:24] VITALS: BP 143/55
[2020-12-11] MEDS: INSULIN LISPRO 100 UNIT/1 ML 3ML VIAL SQ SCH ×2 (07:30→12:26)
[2020-12-11 08:19] VITALS: BP 143/55
[2020-12-11] MEDS ORDERED: INSULIN GLARGINE 100 UNITS/ML VIAL SQ SCH (09:00)
[2020-12-11] MEDS: NIFEDIPINE CR 30 MG TAB PO SCH (09:14)
[2020-12-11] MEDS: OMEGA 3 POLYUNSAT FATTY ACIDS 1000 MG SOFTGEL PO SCH (09:14)
[2020-12-11] MEDS: AMIODARONE HCL 200 MG TAB PO SCH (09:14)
[2020-12-11] MEDS: METOPROLOL SUCCINATE 50 MG TAB XL PO SCH (09:14)
[2020-12-11 11:24] VITALS: BP 134/60
[2020-12-11] MEDS ORDERED: LANTUS 3ML100 UNITS/ SQ (14:51)
[2020-12-11 15:19] VITALS: BP 118/65
== END 2020-12-11 15:35 | disposition home or self-care (01) | DRG 638 ==
LOC: ER 03:08 → ERHOLD 04:33 → MED/SURG3 05:20
DX: E11.649 Type 2 diabetes mellitus with hypoglycemia without coma (principal); E44.0 Moderate protein-calorie malnutrition; Z98.84 Bariatric surgery status; F03.90 Unspecified dementia, unspecified severity, without behavioral disturbance, psychotic disturbance, mood disturbance, and anxiety; Z86.73 Personal history of transient ischemic attack (TIA), and cerebral infarction without residual deficits; I10 Essential (primary) hypertension; Z20.822 Contact with and (suspected) exposure to COVID-19; Z68.30 Body mass index [BMI] 30.0-30.9, adult
CPT/HCPCS: 36415; 71045; 80048; 80053; 81001; 82550; 82553; 82948; 83036; 84439; 84443; 84484; 85025; 93005; 99284; J1815; J7042; J7070; J7799; U0002

== ENCOUNTER 2021-04-19 14:19 | Inpatient (IN) | payer MEDICARE ==
[~2021-04-19] VITALS: Ht 172.7 cm; Wt 68.5 kg
[~2021-04-19 14:19] MED LIST changes: +LANTUS 3ML100 UNITS/ SQ
[2021-04-19 14:56] LABS: ABG HCO3 25 mmol/L (22-26); ABG PCO2 33 mmHg (35-45); ABG PO2 80 mmHg (80-105); ABG TCO2 26
[2021-04-19 15:07] LABS: BASOPHILS % 0.3 % (0.0-1.0); EOSINOPHILS % 0.1 % (0.0-6.0); HEMATOCRIT 40.6 % (34.2-44.1); HEMOGLOBIN 12.8 g/dL (12.0-16.0); LYMPHOCYTES # (AUTO) 1.1 (1.0-3.2); LYMPHOCYTES % 7.2 % (18.0-39.1); MEAN CORPUSCULAR HEMOGLOBIN 28.1 pg (28-32); MEAN CORPUSCULAR HGB CONC 31.5 g/dL (31-35); MONOCYTES # (AUTO) 1.6 (0.2-0.8); NEUTROPHILS # (AUTO) 12.8 (2.1-6.9); NEUTROPHILS % 81.8 % (38.7-80.0); PLATELET COUNT 255 x10e3/uL (140-360); RED BLOOD COUNT 4.56 x10e6/uL (3.6-5.1)
[2021-04-19 15:09] LABS: CLARITY,URINE SL CLOUDY (CLEAR); COLOR,URINE AMBER (YELLOW); KETONES,URINE 1+ (NEGATIVE); LEUKOCYTE ESTERASE ,URINE SMALL (NEGATIVE); NITRITE,URINE NEGATIVE (NEGATIVE); PROTEIN,URINE DIPSTICK 1+ (NEGATIVE); URINE UROBILINOGEN 0.2 mg/dL (0.2 - 1)
[2021-04-19 15:16] LABS: INR 1.21; PARTIAL THROMBOPLASTIN TIME 25.9 seconds (23.8-35.5); PROTHROMBIN TIME 16.3 seconds (11.9-14.5)
[2021-04-19 15:24] LABS: BACTERIA,URINE MANY /HPF; EPITHELIAL CELLS,URINE FEW /LPF; RBC,URINE 0-5 /HPF (0-5)
[2021-04-19 16:17] LABS: ALBUMIN 2.2 g/dL (3.5-5.0); ALBUMIN/GLOBULIN RATIO 0.6 (0.8-2.0); ANION GAP 19.3 mmol/L (8-16); CALCIUM 8.9 mg/dL (8.4-10.2); CREATININE, SERUM 3.84 mg/dL (0.57-1.11)
[2021-04-19 16:18] LABS: POTASSIUM 6.3 mmol/L (3.5-5.1)
[2021-04-19 16:23] LABS: CREATINE KINASE MB 0.7 ng/mL (0-5.0)
[2021-04-19] MEDS ORDERED: ALBUTEROL SULF 0.083% NEB SOLN 3 ML NEB NEB STA ×2 (17:22→18:49)
[2021-04-19] MEDS ORDERED: DEXTROSE 50% SYRINGE 50 ML IV STA (17:22)
[2021-04-19] MEDS ORDERED: INSULIN REGULAR, HUMAN 100 UNIT/1 ML IV ONE (17:30)
[2021-04-19] MEDS ORDERED: CALCIUM GLUCONATE 10% INJ 4.65 MEQ in SODIUM CHLORIDE 0.9% 50ML 50 ML IV ONE (17:30)
[2021-04-19] MEDS ORDERED: SODIUM BICARBONATE 8.4% INJ 50 ML SYR IV STA (17:39)
[2021-04-19] MEDS ORDERED: ASPIRIN 81 MG CHEW TAB PO ONE (18:30)
[2021-04-19] MEDS ORDERED: FUROSEMIDE INJ 10 MG/ML 4 ML VIAL IV ONE (18:30)
[2021-04-19] MEDS ORDERED: SOD POLYSTYRENE SULFONATE SUSP 15 GM/60 ML BTL PO ONE (19:00)
[2021-04-19] MEDS ORDERED: SODIUM CHLORIDE 0.9% 500ML 500 ML IV ONE (19:00)
[2021-04-19] MEDS: CEFTRIAXONE 1 GM in SODIUM CHLORIDE 0.9% 50ML 50 ML IV SCH (19:01)
[2021-04-19] MEDS ORDERED: ZOLPIDEM TARTRATE 5 MG TAB PO PRN (19:30)
[2021-04-19] MEDS ORDERED: DEXTROSE 50% SYRINGE 50 ML IV PRN (19:30)
[2021-04-19] MEDS ORDERED: ACETAMINOPHEN 325 MG TAB PO PRN (19:30)
[2021-04-19] MEDS ORDERED: SODIUM CHLORIDE 0.9% 1000ML 1,000 ML IV ONE (19:45)
[2021-04-19] MEDS: FAMOTIDINE 20 MG/2 ML VIAL IV SCH (20:56)
[2021-04-19 21:00] VITALS: BP 130/59
[2021-04-19] MEDS: INSULIN REGULAR, HUMAN 100 UNIT/1 ML SQ SCH (21:00)
[2021-04-19 22:00] VITALS: BP 121/59
[2021-04-19 23:00] VITALS: BP 124/67
[2021-04-20] VITALS (17 sets, daily range): BP systolic 97–161; BP diastolic 57–85
[2021-04-20] MEDS: LEVOTHYROXINE SODIUM 88 MCG TAB PO SCH (06:00)
[2021-04-20 06:17] LABS: BASOPHILS % 0.3 % (0.0-1.0); EOSINOPHILS # (AUTO) 0.1 (0.0-0.4); EOSINOPHILS % 1.1 % (0.0-6.0); HEMATOCRIT 40.5 % (34.2-44.1); HEMOGLOBIN 12.5 g/dL (12.0-16.0); LYMPHOCYTES # (AUTO) 1.2 (1.0-3.2); LYMPHOCYTES % 10.3 % (18.0-39.1); MEAN CORPUSCULAR HEMOGLOBIN 28.4 pg (28-32); MEAN CORPUSCULAR HGB CONC 30.9 g/dL (31-35); MONOCYTES # (AUTO) 1.5 (0.2-0.8); MONOCYTES % 12.7 % (4.4-11.3); NEUTROPHILS # (AUTO) 8.9 (2.1-6.9); NEUTROPHILS % 75.2 % (38.7-80.0); PLATELET COUNT 297 x10e3/uL (140-360); RED CELL DISTRIBUTION WIDTH 21.8 % (11.7-14.4)
[2021-04-20 06:39] LABS: ALBUMIN/GLOBULIN RATIO 0.5 (0.8-2.0); ANION GAP 18.9 mmol/L (8-16); CALCIUM 8.6 mg/dL (8.4-10.2); CHOL/HDL RATIO 4.1 (3.0-3.6); CREATININE, SERUM 3.47 mg/dL (0.57-1.11); POTASSIUM 4.9 mmol/L (3.5-5.1)
[2021-04-20 06:47] LABS: CREATINE KINASE MB 0.7 ng/mL (0-5.0)
[2021-04-20] MEDS: INSULIN REGULAR, HUMAN 100 UNIT/1 ML SQ SCH ×4 (07:30→20:29)
[2021-04-20] MEDS: FUROSEMIDE INJ 10 MG/ML 4 ML VIAL IV SCH ×3 (10:28→21:00)
[2021-04-20] MEDS: AMIODARONE HCL 200 MG TAB PO SCH (10:28)
[2021-04-20] MEDS: CEFTRIAXONE 1 GM in SODIUM CHLORIDE 0.9% 50ML 50 ML IV SCH (10:28)
[2021-04-20] MEDS: FAMOTIDINE 20 MG/2 ML VIAL IV SCH ×2 (10:28→19:15)
[2021-04-20] MEDS ORDERED: METOPROLOL SUCCINATE 25 MG TAB XL PO ONE (11:00)
[2021-04-20 16:43] LABS: ANION GAP 15.9 mmol/L (8-16); CALCIUM 8.4 mg/dL (8.4-10.2); CREATININE, SERUM 3.03 mg/dL (0.57-1.11); POTASSIUM 4.9 mmol/L (3.5-5.1)
[2021-04-20 17:10] LABS: CREATINE KINASE MB 0.9 ng/mL (0-5.0)
[2021-04-20 19:13] LABS: SODIUM,URINE 111 mmol/L
[2021-04-20 19:16] LABS: EOSINOPHIL SMEAR,URINE NONE SEEN (NONE SEEN)
[2021-04-20 19:17] LABS: TOTAL PROTEIN, URINE < 6.8 mg/dL (1-14)
[2021-04-20] MEDS ORDERED: SIMVASTATIN 20 MG TAB PO SCH (21:00)
[2021-04-20] MEDS: ONDANSETRON HCL INJ 2MG/ML 2ML 2 MG/ML VIAL IV PRN (23:55)
[2021-04-21 00:23] VITALS: BP 118/67
[2021-04-21 04:00] VITALS: BP 100/62
[2021-04-21] MEDS: FUROSEMIDE INJ 10 MG/ML 4 ML VIAL IV SCH (06:00)
[2021-04-21] MEDS: LEVOTHYROXINE SODIUM 88 MCG TAB PO SCH (06:00)
[2021-04-21 06:19] LABS: BASOPHILS % 0.2 % (0.0-1.0); EOSINOPHILS % 0.1 % (0.0-6.0); HEMATOCRIT 38.9 % (34.2-44.1); HEMOGLOBIN 11.8 g/dL (12.0-16.0); LYMPHOCYTES # (AUTO) 0.7 (1.0-3.2); LYMPHOCYTES % 6.1 % (18.0-39.1); MEAN CORPUSCULAR HEMOGLOBIN 27.6 pg (28-32); MEAN CORPUSCULAR HGB CONC 30.3 g/dL (31-35); MEAN CORPUSCULAR VOLUME 90.9 fL (81-99); MONOCYTES # (AUTO) 0.8 (0.2-0.8); MONOCYTES % 7.6 % (4.4-11.3); NEUTROPHILS # (AUTO) 9.1 (2.1-6.9); NEUTROPHILS % 84.9 % (38.7-80.0); PLATELET COUNT 254 x10e3/uL (140-360); RED BLOOD COUNT 4.28 x10e6/uL (3.6-5.1); RED CELL DISTRIBUTION WIDTH 21.6 % (11.7-14.4)
[2021-04-21] MEDS: ONDANSETRON HCL INJ 2MG/ML 2ML 2 MG/ML VIAL IV PRN (06:33)
[2021-04-21 06:44] LABS: ALBUMIN 1.9 g/dL (3.5-5.0); ALBUMIN/GLOBULIN RATIO 0.5 (0.8-2.0); ANION GAP 25.1 mmol/L (8-16); CREATININE, SERUM 3.33 mg/dL (0.57-1.11); POTASSIUM 5.1 mmol/L (3.5-5.1)
[2021-04-21] MEDS: INSULIN REGULAR, HUMAN 100 UNIT/1 ML SQ SCH (07:30)
[2021-04-21 08:03] VITALS: BP 77/50
[2021-04-21 08:34] VITALS: BP 77/50
[2021-04-21] MEDS ORDERED: METOPROLOL SUCCINATE 25 MG TAB XL PO SCH (09:00)
[2021-04-21] MEDS: AMIODARONE HCL 200 MG TAB PO SCH (09:00)
[2021-04-21] MEDS ORDERED: ASPIRIN 81 MG ENTERIC COATED PO SCH (09:00)
[2021-04-21] MEDS ORDERED: SODIUM CHLORIDE 0.9% 250ML 0 ML ONE (09:15)
== END 2021-04-21 12:29 | disposition expired | DRG 871 ==
LOC: ER 14:27 → ERHOLD 19:14 → ICU 21:05 → MED/SURG 04-20 18:07
DX: A41.9 Sepsis, unspecified organism (principal); G93.41 Metabolic encephalopathy; I50.23 Acute on chronic systolic (congestive) heart failure; N17.0 Acute kidney failure with tubular necrosis; N39.0 Urinary tract infection, site not specified; I13.0 Hypertensive heart and chronic kidney disease with heart failure and stage 1 through stage 4 chronic kidney disease, or unspecified chronic kidney disease; R65.20 Severe sepsis without septic shock; E11.51 Type 2 diabetes mellitus with diabetic peripheral angiopathy without gangrene; Z79.899 Other long term (current) drug therapy; I48.0 Paroxysmal atrial fibrillation; E87.5 Hyperkalemia; Z20.822 Contact with and (suspected) exposure to COVID-19; F03.90 Unspecified dementia, unspecified severity, without behavioral disturbance, psychotic disturbance, mood disturbance, and anxiety; E11.22 Type 2 diabetes mellitus with diabetic chronic kidney disease; N18.9 Chronic kidney disease, unspecified; Z66 Do not resuscitate
CPT/HCPCS: 36415; 36569; 36600; 51700; 71045; 76770; 80048; 80053; 80061; 81001; 81015; 82550; 82553; 82570; 82805; 82948; 83605; 83735; 83880; 84156; 84300; 84484; 85025; 85610; 85730; 87040; 87086; 93005; 93306; 94640; 94799; 99284; J0610; J0696; J1940; J2405; J7030; J7050; J7799; U0002